=== PATIENT | female | born 1990 | race Caucasian/White ===

== ENCOUNTER 2017-01-21 21:32 | Emergency (ER) | payer BC ==
[~2017-01-21] VITALS: Ht 162.6 cm; Wt 73.6 kg
[~2017-01-21 21:32] MED LIST: ACET-62 PO; PREN1TAB73 PO
[2017-01-21 22:09] VITALS: BP 137/67; PULSE 94; RESP 16; TEMP 99.6; O2SAT 96; Ht 162.6 cm; Wt 73.6 kg
--- NOTE | 2017-01-21 22:38 | NUR ---
[facility] PT REPORTS THAT SHE WOULD LIKE TO LEAVE AT THIS TIME TO GO AND BE SEEN AT [place]. PT LEAVES AMBULATORY.
== END 2017-01-21 22:38 | disposition left against medical advice (07) ==
LOC: ED 21:32
DX: Z53.21 Procedure and treatment not carried out due to patient leaving prior to being seen by health care provider (principal)

== ENCOUNTER 2017-07-03 19:22 | Observation (INO) ==
--- OUTSIDE RECORDS SUMMARY | 2017-07-03 19:50 | External Medical Summary | Referral Summary ---
:1990 Author Organization [facility] [place] [phone] Care Team Providers Name Role Phone Stevie Roe Primary Care Physician Encounter VC Date(s): 08/31/16 - 08/31/16 [facility] [place] [phone] [place] Discharge Diagnosis: History of migraine headaches Discharge Diagnosis: Chronic pain disorder Discharge Diagnosis: Currently Discharge Disposition: 01-Home or Self Care Attending Physician: Romelia Morgan PA-C Admitting Physician: Romelia Morgan PA-C Vital Signs Most recent to oldest [Reference Range]: 1 Peripheral Pulse Rate [60-100 bpm] 82 bpm (08/31/16 8:51 AM) Blood Pressure [90-140/60-90 mmHg] 96/46 mmHg (08/31/16 8:51 AM) SpO2 98 % (08/31/16 8:51 AM) Problem List Condition Effective Dates Status Health Status Informant Bladder problem(Confirmed) Active Chronic pain disorder(Confirmed) Resolved Dental caries(Confirmed) Active Ear cysts(Confirmed) Resolved Genital herpes(Confirmed) Active STD (sexually transmitted Active disease)(Confirmed) Tobacco user(Confirmed) Active patient Allergies, Adverse Reactions, Alerts No Known Medication Allergies Medications albuterol CFC free 90 mcg/inh inhalation aerosol 2 puffs, Inhalation, QID, as needed for wheezing, # 18 g, 0 Refill(s), Pharmacy : [facility] [id number] Start Date: 03/10/15 Status: OrderedCeleXA 20 mg oral tablet See Instructions, Take 1/2 tab PO QD x 1 week, then 1 tab PO QD, # 30 tabs, 0 Refill(s) Start Date: 08/31/16 Status: OrderedNorco 5 mg-325 mg oral tablet 1 tabs, Oral, q6hr, as needed for pain, Must last 30 days. Please make an appt for med check., # 25tabs, 0 Refill(s) Start Date: 08/07/16 Status: OrderedPhysical Therapy Physical Therapy, See Instructions, Evaluate and treat for migraine headaches ( Z86.69) and chronic pain (G89.4). Please fax notes to [phone], # 1 Each, 0 Refill(s) Start Date: 08/31/16 Status: OrderedZofran ODT 4 mg oral tablet, disintegrating 4 mg 1 tabs, Oral, TID, as needed for nausea/vomiting, 0 Refill(s) Start Date: 06/26/16 Status: Ordered Results No data available for this section Immunizations No data available for this section Procedures Procedure Date Related Diagnosis Body Site Knee surgery 2009 and 2010 2009 Rt shoulder surgery 2004 Social History Social History Type Response Smoking Status Current every day smoker; Type: Cigarettes; Tobacco use per day : 1/2 pack or more Assessment and Plan Extracted from: Title: Office Visit Note- ED f/u, Author: Romelia Morgan PA-C Date: migraines, pain Assessment/Plan Chronic pain disorder I am not comfortable giving the pt any narcotics or pain medicationwhile she is . She is not even due for her Archer, and I already told her that I would not fill it tod ay. I discussed the case with Dr. Roe. He recommended trying Celexa to see if this would help with pain and migraines. Will start on 10mg daily for a week, then increase to 20mg. Also recommended d oing physical therapy. She states that she wouldn't have a way to get there as she does not have a [place] driver's license and relies on others for ride. She was handed a script for PT today, and may start thi s if she can. Also recommended seeing pain management, and she is agreeable to trying this. Will set her up with Dr. Watkins to see if there is anything he can do to help her with her pain while she is . Ordered: Office Visit Level 4 Est 02773 Currently Will be seeing her OB doctor on Sunday (09/04). I d/w pt that she should NOT take NSAIDs while . Needs to stop taking Ibuprofen at home. May take Tylenol. May take Zofran fo r her nausea. I d/w pt the dangers to herself and to the baby when taking alf narcotics and pain medication while . She states that she had taken Archer throughout her with her jarret hardin child, and did fine. Again, I am NOT comfortable giving her narcotics while , and will have to get these through Dr. Roe if he is willing. CanNOT have Archer until due(not until 09/07), if it is approved. Ordered: Office Visit Level 4 Est 14522 History of migraine headaches As above. D/w her to only take Tylenol for pain. Can also try Benadryl to see if this helps. Zofran for N/V. Ordered: Office Visit Level 4 Est 49560
--- OUTSIDE RECORDS SUMMARY | 2017-07-03 19:50 | External Medical Summary | Continuity of Care Document ---
:1990 Author Organization [facility] Address [address] [place], [place] [id number] Phone Care Team Providers Name Role Phone Stevie Roe MD, FAAFP Unavailable Unavailable Allergies, Adverse Reactions, Alerts Substance Reaction Severity Status No Known Drug Allergies Unknown Active Medications Medication Instructions Dosage Effective Dates Status Comments (start - stop) Spur 5 mg-325 mg take 1 tablet by Not Available - Active tablet oral route every 6 hours as needed for pain Mirena 20 mcg/24 hr - - Active (5 years) intrauterine device Problems Condition Effective Dates (start - stop) Clinical Status Acute upper respiratory infection, unspecified Dysuria - Active Pelvic Pain - Active IUD, Surveillance - Active Procedures Procedure Date Unknown Results Test Name Date and Time Measure Units Reference Range Abnormal Flag Comments Unknown Advance Directives Directive Yes / No Effective Date File Name Unknown Encounters Encounter Practice Location Reason(s) Diagnoses Date Provider Care Team Description For Visit Members [facility] C[facility] In -2016 [facility] Medical [address], [place], [address], [id number], [place] [facility], tel:[phone], [address] [place]. tel:[phone] Luiza Cee Acute upper Shabbir Referring In [facility] -2016 [facility] Provider: Laurent YANES, infection, Medical [facility] [address], unspecified [place], [place], [address], [address] , [place] [address] [place], [address], tel:[phone], [place], [address] [place]. [id number]. tel: tel:[phone] [facility] [place] [facility] [place]. [facility], Medical [address], [place], [address], [id number], [facility] [place], tel:[phone], [address] [place]. tel:[phone] Luiza Cee Shabbir In [place]. [facility], Medical [address], [place], [address], [id number], [facility], tel:[phone], [address] [place]. tel:[phone] Luiza Cee Shabbir In [place]. [facility] [place], Medical [address], [place], [address], [id number], [facility], tel:[phone], [address] [place]. tel:[phone] Family History Family Member Diagnosis Age At Onset Paternal Grandmother Cardiovascular Disease Father Hypertension Father Diabetes mellitus Mother Diabetes mellitus Father Hypercholesterolemia Immunizations Vaccine Date Status Comments Unknown Payers Payer name Insurance type Covered green party ID Authorization(s) [place] [id number] Social History Type Description Quantity Date Captured Alcohol Use Details Unknown Caffeine Use Details Unknown Tobacco Use Status Unknown Smoking Status Unknown Vital Signs Date / Height Weight BMI Pulse Blood Temperature Respiratory Body Head BMI Time: Rate Pressure Rate Surface Circumference percentile Area Unknown Chief Complaint And Reason For Visit Unknown Chief Complaint And Reason For Visit Reason For Referral Reason For Referral Unknown Plan Of Care Date Type Action Status Unknown. Date Type Problem Goal Intervention Status Start Date Unknown. History Of Present Illness Encounter Date Complaint History Of Present Illness This patient has no known history of present illness Functional Status Encounter Date Functional Assessment Cognitive Assessment Unknown Medications Administered Medication Instructions Dosage Effective Dates (start - stop) Status Comments Drug Treatment Unknown Instructions Date Instruction Additional Information Unknown
--- OUTSIDE RECORDS SUMMARY | 2017-07-03 19:50 | External Medical Summary | Referral Summary ---
:1990 Author [facility] Address [address] [place] [address] [place] [address] Care Team Providers Name Role Phone Stevie Reo Primary Care Physician Encounter VC Date(s): 03/10/15 - 03/10/15 [facility] [place] [phone] [place] Discharge Disposition: 01-Home or Self Care Attending Physician: Stevie Roe MD Admitting Physician: Stevie Roe MD Vital Signs Most recent to oldest [Reference Range]: 1 Blood Pressure [90-140/60-90 mmHg] 100/60 mmHg (03/10/15 9:20 AM) Problem List Condition Effective Dates Status [...] # 18 g, 0 Refill(s), Pharmacy : [facility] [id number] Start Date: 03/10/15 Status: Orderedamitriptyline 25 mg oral tablet 1-2 tabs, Oral, Bedtime (once a day), # 30 Each, 0 Refill(s), Pharmacy: [facility] [id number], 1-2 tabs Oral Bedtime (once a day) Start Date: 07/28/15 Status: Orderedibuprofen 800 mg oral tablet 1 tabs, Oral, q8hr, # 30 tabs, 0 Refill(s), Pharmacy: [facility] [id number] , 1 tabs Oral q8hr Start Date: 10/14/14 Status: OrderedKeflex 500 mg oral capsule 500 mg 1 caps, Oral, q6hr, # 40 caps, 0 Refill(s), Pharmacy: [facility] [id number], 1 caps Nrazq3pm Start Date: 07/08/15 Status: OrderedMobic 7.5 mg oral tablet 1 tabs, Oral, q12hr, # 60 tabs, 0 Refill(s), Pharmacy: [facility] [id number], 1 tabs Oral q12hr Start Date: 11/24/14 Status: OrderedNorco 5 mg-325 mg oral tablet 1 tabs, Oral, q6hr, as needed for pain, Must last 30 days., # 20 tabs, 0 Refill( s) Start Date: 08/30/15 Status: OrderedtraMADol 50 mg oral tablet 50 mg 1 tabs, Oral, q12hr, as needed for pain, [facility], # 60 tabs, 0 Refill(s) Start Date: 07/28/15 Status: Ordered Results No data available for this section Immunizations No data available for this section Procedures Procedure Date Related Diagnosis Body Site Knee surgery 2009 and 2010 2009 Rt shoulder surgery 2004 Social History Social History Type Response Smoking Status Current every day smoker; Type: Cigarettes Assessment and Plan Extracted from: Title: Ambulatory Patient Education Author: Stevie Roe MD Date: Family Medicine Chronic Obstructive Pulmonary Disease Chronic obstructive pulmonary disease (COPD) is a common lung condition in which airflow from the lungs is limited. COPD is a general term that can be used to describe many different lung problems that limit airflow, including both chronic bronchitis and emphysema. If you have COPD, your lung function will probably never return to normal, but there are measures you can take to improve lung function and make yourself feel better. CAUSES Smoking (common). Exposure to secondhand smoke. Genetic problems. Chronic inflammatory lung diseases or recurrent infections. SYMPTOMS Shortness of breath, especially with physical activity. Deep, persistent (chronic ) cough with a large amount of thick mucus. Wheezing. Rapid breaths (tachypnea ). Malone or bluish discoloration (cyanosis ) of the skin, especially in fingers, toes, or lips. Fatigue. Weight loss. Frequent infections or episodes when breathing symptoms become much worse (exacerbations ). Chest tightness. DIAGNOSIS Your healthcare provider will take a medical history and perform a physical examination to make the initial diagnosis. Additional tests for COPD may include: Lung (pulmonary ) function tests. Chest X-ray. CT scan. Blood tests. TREATMENT Treatment available to help you feel better when you have COPD include: Inhaler and nebulizer medicines. These help manage the symptoms of COPD and make your breathing more comfortable Supplemental oxygen. Supplemental oxygen is only helpful if you have a low oxygen level in your blood. Exercise and physical activity. These are beneficial for nearly all people with COPD. Some people may also benefit from a pulmonary rehabilitation program. HOME CARE INSTRUCTIONS Take all medicines (inhaled or pills) as directed by your health care provider. Only take dwnz-epx-ayjavfi or prescription medicines for pain, fever, or discomfort as directed by your health care provider. Avoid xoxp-owr-myfbfaz medicines or cough syrups that dry up your airway ( such as antihistamines) and slow down the elimination of secretions unless instructed otherwise by your healthcare provider. If you are a smoker, the most important thing that you can do is stop smoking. Continuing to smoke will cause further lung damage and breathing trouble. Ask your health care provider for help with quitting smoking. He or she can direct you to community resources or hospitals that provide support. Avoid exposure to irritants such as smoke, chemicals, and fumes that aggravate your breathing. Use oxygen therapy and pulmonary rehabilitation if directed by your health care provider. If you require home oxygen therapy, ask your healthcare provider whether you should purchase a pulse oximeter to measure your oxygen level at home. Avoid contact with individuals who have a contagious illness. Avoid extreme temperature and humidity changes. Eat healthy foods. Eating smaller, more frequent meals and resting before meals may help you maintain your strength. Stay active, but balance activity with periods of rest. Exercise and physical activity will help you maintain your ability to do things you want to do. Preventing infection and hospitalization is very important when you have COPD. Make sure to receive all the vaccines your health care provider recommends , especially the pneumococcal and influenza vaccines. Ask your healthcare provider whether you need a pneumonia vaccine. Learn and use relaxation techniques to manage stress. Learn and use controlled breathing techniques as directed by your health care provider. Controlled breathing techniques include: Pursed lip breathing. Start by breathing in (inhaling ) through your nose for 1 second. Then, purse your lips as if you were going to whistle and breathe out (exhale ) through the pursed lips for 2 seconds. Diaphragmatic breathing. Start by putting one hand on your abdomen just above your waist. Inhale slowly through your nose. The hand on your abdomen should move out. Then purse your lips and exhale slowly. You should be able to feel the hand on your abdomen moving in as you exhale. Learn and use controlled coughing to clear mucus from your lungs. Controlled coughing is a series of short, progressive coughs. The steps of controlled coughing are: 1. Lean your head slightly forward. 2. Breathe in deeply using diaphragmatic breathing. 3. Try to hold your breath for 3 seconds. 4. Keep your mouth slightly open while coughing twice. 5. Spit any mucus out into a tissue. 6. Rest and repeat the steps once or twice as needed. SEEK MEDICAL CARE IF: You are coughing up more mucus than usual. There is a change in the color or thickness of your mucus. Your breathing is more labored than usual. Your breathing is faster than usual. SEEK IMMEDIATE MEDICAL CARE IF: You have shortness of breath while you are resting. You have shortness of breath that prevents you from: Being able to talk. Performing your usual physical activities. You have chest pain lasting longer than 5 minutes. Your skin color is more cyanotic than usual. You measure low oxygen saturations for longer than 5 minutes with a pulse oximeter. MAKE SURE YOU: Understand these instructions. Will watch your condition. Will get help right away if you are not doing well or get worse. Document Released: 07/11/2006 Document Revised: 07/22/2014 Document Reviewed: 05/28/2014 [facility] Patient Information 2014 [facility]. No follow up information was provided. Extracted from: Title: Office Visit Note Author: Stevie Roe MD Date: 03/10/15 Assessment/Plan Acute URI Zpack and prednisone 20mg po daily for five days was given. A work /school note was offered and deferred by the patient. Tobacco user Smoking Cessatin was discussed. The patient is welcome to f/u for therapy or medication for smoking cessation at any time that they are willing to quit. Wheezing Solumedrol 80mg IM and albuterol mdi twopuffs q6 prn. Consider cxr if not improving.
--- OUTSIDE RECORDS SUMMARY | 2017-07-03 19:50 | External Medical Summary | Referral Summary ---
:1990 Author Organization [facility] [place] [address] Care Team Providers Name Role Phone Stevie Roe Primary Care Physician Encounter Date(s): 02/04/16 - 02/04/16 [facility] [place] [phone]- Discharge Diagnosis: Well woman exam with routine gynecological exam Discharge Diagnosis: Encounter for removal of intrauterine contraceptive device Discharge Disposition: 01-Home or Self Care Attending Physician: Kym Norris APRN Admitting Physician: Kym Norris APRN Vital Signs Most recent to oldest [Reference Range]: 1 Peripheral Pulse Rate [60-100 bpm] 66 bpm (02/04/16 9:50 AM) Blood Pressure [90-140/60-90 mmHg] 106/60 mmHg (02/04/16 9:50 AM) Problem List Condition Effective Dates Status [...] # 18 g, 0 Refill(s), Pharmacy : [facility] [id number] Start Date: 03/10/15 Status: OrderedCompazine 10 mg, Oral, QID, as needed for nausea/vomiting, # 30 tabs, 0 Refill(s) Start Date: 01/27/16 Status: Orderedibuprofen 800 mg oral tablet 1 tabs, Oral, q8hr, # 30 tabs, 0 Refill(s), Pharmacy: [facility] [id number] , 1 tabs Oral q8hr Start Date: 10/14/14 Status: OrderedKeflex 500 mg oral capsule 500 mg 1 caps, Oral, QID, X 10 days, # 40 caps, 0 Refill(s), Pharmacy: [facility] [id number], 1caps Oral QID,x10 days Start Date: 02/02/16 Stop Date: 02/12/16 Status: OrderedNorco 5 mg-325 mg oral tablet 1 tabs, Oral, q6hr, as needed for pain, Must last 30 days. Note number dispensed increased to 25 tabs by pcp., # 25 tabs, 0 Refill(s) Start Date: 02/02/16 Status: OrderedtraMADol 50 mg oral tablet 50 mg 1 tabs, Oral, BID, as needed for pain, Must last 30 days., # 60 tabs, 0 Refill(s) Start Date: 12/06/15 Status: Ordered Results No data available for this section Immunizations No data available for this section Procedures Procedure Date Related Diagnosis Body Site Knee surgery 2009 and 2010 2009 Rt shoulder surgery 2004 Social History Social History Type Response Smoking Status Current every day smoker; Type: Cigarettes Assessment and Plan No data available for this section
--- OUTSIDE RECORDS SUMMARY | 2017-07-03 19:51 | External Medical Summary | Referral Summary ---
:1990 Author Organization [facility] [place] [address] Care Team Providers Name Role Phone Stevie Roe Primary Care Physician Encounter VC Date(s): 02/02/16 - 02/02/16 [facility] [place] [phone] [place] Discharge Disposition: 01-Home or Self Care Attending Physician: Stevie Roe MD Admitting Physician: Stevie Roe MD Vital Signs Most recent to oldest [Reference Range]: 1 Blood Pressure [90-140/60-90 mmHg] 100/60 mmHg (02/02/16 11:02 AM) Problem List Condition Effective Dates Status [...] # 18 g, 0 Refill(s), Pharmacy : [facility] [address] Start Date: 03/10/15 Status: OrderedCompazine 10 mg, Oral, QID, as needed for nausea/vomiting, # 30 tabs, 0 Refill(s) Start Date: 01/27/16 Status: Orderedibuprofen 800 mg oral tablet 1 tabs, Oral, q8hr, # 30 tabs, 0 Refill(s), Pharmacy: [facility] [id number] , 1 tabs Oral q8hr Start Date: 10/14/14 Status: OrderedKeflex 500 mg oral capsule 500 mg 1 caps, Oral, QID, X 10 days, # 40 caps, 0 Refill(s), Pharmacy: [facility] [address], 1caps Oral QID,x10 days Start Date: 02/02/16 [...] Cigarettes Assessment and Plan Extracted from: Title: Office Visit Note Author: Stevie Roe MD Date: 02/02/16 Assessment/Plan Chronic pain disorder This issue was reviewed, appears stable, and current therapy continued except as mentioned. Appropriate lab was reviewed from the most recent appropriate entry and lab was orde red if needed in the cpoe/nursing orders, and follow up recommended generally in 90 days and no later then six months. Bradley to norco 5 number 25 every 30 days. A work/school note was offered and deferred by the patient. Infection associated with intrauterine contraceptive device (IUD). Keflex 500mg po qid for ten days and has some on hand already and wants to use that due to no insurance. To Dr. Beatriz Norris for consideration of IUD removal at patient request. Pelvic sono discussed and declined by her due to expense. Offered [facility] care and declined for now. To [facility] if worse in any way. Sent: 01/27/2016 10:34:13 CDT Subject: [facility] visit 01.26.2016 Per [facility] record: One day hx of LLQ pain, sharp and stabbing like her pain from prior ovarian cysts. Also seems to have a lot of pain from her IUD, and like her IUD taken out tonight if possible. Patient does have mult iple chronic pain syndromes, takes Bradley routinely, but gets prescriptions from her very care physician 20 tablets every 30 days on a strict contract. Patient is currently out, and awaiting appointment to see her primary physician for refill. LLQ pain See above. Tobacco user Smoking Cessation was discussed. The patient is welcome to f/u for therapy or medication for smoking cessation at any time that they are willing to quit. Orders: cephalexin, 500 mg 1 caps, Oral, QID, X 10 days, # 40 caps, 0 Refill( s), Pharmacy: [facility] [id number], 1 caps Oral QID,x10 days HYDROcodone-acetaminophen, 1 tabs, Oral, q6hr, as needed for pain, Must last 30 days. Note number dispensed increased to 25 tabs by pcp., # 25 tabs, 0 Refill (s)
--- OUTSIDE RECORDS SUMMARY | 2017-07-03 19:51 | External Medical Summary | Referral Summary ---
:1990 Author Organization [facility] [place] [place] [phone] Care Team Providers Name Role Phone Stevie Roe Primary Care Physician Encounter VC Date(s): 10/26/15 - 10/26/15 [facility] [place] [place] [phone] [place] Discharge Diagnosis: Bilateral low back pain Discharge Disposition: 01-Home or Self Care Attending Physician: Eri Montana DO Admitting Physician: Eri Montana DO Vital Signs Most recent to oldest [Reference Range]: 1 Peripheral Pulse Rate [60-100 bpm] 66 bpm (10/26/15 3:05 PM) Respiratory Rate [14-20 br/min] 18 br/min (10/26/15 3:05 PM) Blood Pressure [90-140/60-90 mmHg] 110/62 mmHg (10/26/15 3:05 PM) SpO2 99 % (10/26/15 3:05 PM) Problem List Condition Effective Dates Status Health [...] # 18 g, 0 Refill(s), Pharmacy : [facility] [id number] Start Date: 03/10/15 Status: Orderedamitriptyline 25 mg oral tablet 1-2 tabs, Oral, Bedtime (once a day), # 30 Each, 0 Refill(s), Pharmacy: [id number], 1-2 tabs Oral Bedtime (once a day) Start Date: 07/28/15 Status: Orderedibuprofen 800 mg oral tablet 1 tabs, Oral, q8hr, # 30 tabs, 0 Refill(s), Pharmacy: [facility] [id number] , 1 tabs Oral q8hr Start Date: 10/14/14 Status: OrderedKeflex 500 mg oral capsule 500 mg 1 caps, Oral, q6hr, # 40 caps, 0 Refill(s), Pharmacy: [facility] [id number], 1 caps [id number] Start Date: 07/08/15 Status: OrderedNorco 5 mg-325 mg oral tablet 1 tabs, Oral, q6hr, as needed for pain, Must last 30 days., # 20 tabs, 0 Refill( s) Start Date: 09/29/15 Status: Ordered Results No data available for this section Immunizations No data available for this section Procedures Procedure Date Related Diagnosis Body Site Knee surgery 2009 and 2010 2009 Rt shoulder surgery 2004 Social History Social History Type Response Smoking Status Current every day smoker; Type: Cigarettes Assessment and Plan Extracted from: Title: DOC back pain Author: Eri Montana DO Date: 10/26/15 Assessment/Plan Bilateral low back pain Patient was offered muscle relaxants but declined. Steroid shot was provided todayIM. Patient was offered statlumbar x-ray butcould not stay for the results. We will call her with results of the x-ray. I advised patient that I would not provide herany narcotic pain medication above what she is a 28 getting from her primary provider. She believes that she needs this increased she must discuss this with her PCP. Follow-up with PCP if not improving. 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
--- OUTSIDE RECORDS SUMMARY | 2017-07-03 19:51 | External Medical Summary | Referral Summary ---
:1990 Author Organization [facility] [place] [place] [phone] Care Team Providers Name Role Phone Stevie Roe Primary Care Physician Encounter VC Date(s): 07/28/15 - 07/28/15 [facility] [place] [place] [phone]- Discharge Diagnosis: Chronic pain disorder Discharge Diagnosis: Chronic left ear pain Discharge Disposition: 01-Home or Self Care Attending Physician: Romelia Morgan PA-C Admitting Physician: Romelia Morgan PA-C Vital Signs Most recent to oldest [Reference Range]: 1 Temperature Tympanic [36.6-38.1 degC] 37.2 degC (07/28/15 1:49 PM) Peripheral Pulse Rate [60-100 bpm] 84 bpm (07/28/15 1:49 PM) Respiratory Rate [14-20 br/min] 16 br/min (07/28/15 1:49 PM) Blood Pressure [90-140/60-90 mmHg] 106/62 mmHg (07/28/15 1:49 PM) Problem List Condition Effective Dates Status [...] # 18 g, 0 Refill(s), Pharmacy : [facility] [id number] Start Date: 03/10/15 Status: OrderedCompazine 10 mg, Oral, QID, as needed for nausea/vomiting, # 30 tabs, 0 Refill(s) Start Date: 01/27/16 Status: Orderedibuprofen 800 mg oral tablet 1 tabs, Oral, q8hr, # 30 tabs, 0 Refill(s), Pharmacy: [facility] [id number] , 1 tabs Oral q8hr Start Date: 10/14/14 Status: OrderedKeflex 500 mg oral capsule 500 mg 1 caps, Oral, QID, X 10 days, # 40 caps, 0 Refill(s), Pharmacy: [facility] [id number], 1caps Oral QID,x10 days Start Date: 02/02/16 [...] Extracted from: Title: Ambulatory Patient Education Author: Romelia Morgan PA-C Date: 07/28/15 Family Medicine Chronic Pain Chronic pain can be defined as pain that is off and on and lasts for 36 months or longer. Many things cause chronic pain, which can make it difficult to make a diagnosis. There are many treatment opt ions available for chronic pain. However, finding a treatment that works well for you may require trying various approaches until the right one is found. Many people benefit from a combination of two or more types of treatment to control their pain. SYMPTOMS Chronic pain can occur anywhere in the body and can range from mild to very severe. Some types of chronic pain include: Headache. Low back pain. Cancer pain. Arthritis pain. Neurogenic pain. This is pain resulting from damage to nerves. People with chronic pain may also have other symptoms such as: Depression. Anger. Insomnia. Anxiety. DIAGNOSIS Your health care provider will help diagnose your condition over time. In many cases, the initial focus will be on excluding possible conditions that could be causing the pain. Depending on your symptom s, your health care provider may order tests to diagnose your condition. Some of these tests may include: Blood tests. CT scan. MRI. X-rays. Ultrasounds. Nerve conduction studies. You may need to see a specialist. TREATMENT Finding treatment that works well may take time. You may be referred to a pain specialist. He or she may prescribe medicine or therapies, such as: Mindful meditation or yoga. Shots (injections) of numbing or pain-relieving medicines into the spine or area of pain. Local electrical stimulation. Acupuncture. Massage therapy. Aroma, color, light, or sound therapy. Biofeedback. Working with a physical therapist to keep from getting stiff. Regular, gentle exercise. Cognitive or behavioral therapy. Group support. Sometimes, surgery may be recommended. HOME CARE INSTRUCTIONS Take all medicines as directed by your health care provider. Lessen stress in your life by relaxing and doing things such as listening to calming music. Exercise or be active as directed by your health care provider. Eat a healthy diet and include things such as vegetables, fruits, fish, and lean meats in your diet. Keep all follow-up appointments with your health care provider. Attend a support group with others suffering from chronic pain. SEEK MEDICAL CARE IF: Your pain gets worse. You develop a new pain that was not there before. You cannot tolerate medicines given to you by your health care provider. You have new symptoms since your last visit with your health care provider. SEEK IMMEDIATE MEDICAL CARE IF: You feel weak. You have decreased sensation or numbness. You lose control of bowel or bladder function. Your pain suddenly gets much worse. You develop shaking. You develop chills. You develop confusion. You develop chest pain. You develop shortness of breath. MAKE SURE YOU: Understand these instructions. Will watch your condition. Will get help right away if you are not doing well or get worse. Document Released: 06/23/2003 Document Revised: 06/03/2014 Document Reviewed: 03/27/2014 [facility] Patient Information 2015 [facility]. This information is not intended to replace advice given to you by your health care provider. Make sure you discuss any questions you have with your health care provider. No follow up information was provided. Extracted from: Title: Office Visit Note Author: Romelia Morgan PA-C Date: 07/28/15 Assessment/Plan Chronic left ear pain She seems to have good sx relief with the Elavil. Will refill for pt. When she does establish health insurance, may work up further with ENT or CT. Ordered: Office Visit Level 3 Est 33075 Chronic pain disorder I discussed the request of [place] dose increase by the pt. Dr. Roe was not willing to increase at this time. This was discussed with the pt. Script was printed and handed to the pt for [place] 5/325 to take Q 6 H prn pain #20. She is only able to receive refills Q 30 days as appropriate. Pt voiced understanding. Her Tramadol was also refilled today. Ordered: Office Visit Level 3 Est 77922 Orders: amitriptyline, 1-2 tabs, Oral, Bedtime (once a day), # 30 Each, 0 Refill(s), Pharmacy: [facility] [id number], 1-2 tabs Oral Bedtime (once a day) HYDROcodone-acetaminophen, 1 tabs, Oral, q6hr, as needed for pain, Must last 30 days., # 20 tabs, 0 Refill(s)
[2017-07-03] MEDS ORDERED: SALINE FLUSH 10ml SYRINGE IVF PRN (20:24)
[2017-07-03] MEDS ORDERED: KETOROLAC 30 MG/ML INJECTION IVP ONE (20:24)
[2017-07-03] MEDS ORDERED: NS 1,000 ML IV ONE (20:24)
[2017-07-03] MEDS ORDERED: ONDANSETRON 4 MG/2 ML INJECTION IVP ONE (20:24)
--- NOTE | 2017-07-03 20:29 | Emergency Department Report ---
Abdominal Pain HPI - General Chief Complaint: Abdominal Pain Stated Complaint: severe abd pain lower up to rib cage Time Seen by Provider: 07/03/17 19:38 Source: patient, family Mode of arrival: ambulatory Limitations: other (Hystrionics) - History of Present Illness HPI narrative: 27yo woman presents to the ER for evaluation of weeks of abdominal pain. Pt has been seen by her PCM (Dr. Gunderson) and started on several medications, all without effect. Presents tonight, due to 'severe pain'. Pt has not taken anything for this tonight. States that the pain is severe and diffuse. Is unable to localize or characterize the pain. Friend states that pt has PCOS, does not take anything for this. States that the 'whole family' has had to have hysterectomies for 'severe PCOS'. MD complaint: abdominal pain Onset (ago): week(s) Consistency: constant Location: diffuse Severity: similar to previous episodes Severity scale (1-10): >10 Quality: sharp Radiation: none Migration to: no migration Relieving factors: nothing Exacerbating factors: eating, bowel movement, medication, movement Context: history of similar episodes Associated symptoms: nausea - Related Data Home Medications Medication Instructions Recorded Confirmed Cyclobenzaprine HCl 10 mg PO TID PRN 06/07/17 07/03/17 Lubiprostone [Amitiza] 24 mcg PO BID 07/03/17 07/03/17 Oxycodone HCl/Acetaminophen 1 tab PO Q6HPRN PRN 07/03/17 07/03/17 [Oxycodon-Acetaminophen 7.5-325] Allergies Allergy/AdvReac Type Severity Reaction Status Date / Time No Known Drug Allergies Allergy Unknown NONE Verified 07/03/17 19:59 Review of Systems All systems: reviewed and negative except as stated Gastrointestinal: Reports: as per HPI, abdominal pain PFSH Patient Stated Medical History Migraine Yes Osteoarthritis Yes: R knee Herpes Yes Depression Yes Ovarian Cysts Yes Polycystic Ovarian Syndrome Yes Post Menopausal No Now No - Social History Smoking status: Current every day smoker Physical Exam - Limitations Limitations: other (Hystrionics) - General General appearance: alert, in distress - Normal Exams: Head:: Normocephalic without trauma Eyes:: Pupils are PERRLA w/ EOMI, No scleral icterus, irritation, or foreign bodies noted ENMT:: No facial trauma, nasal exudates, pharyngeal erythema, or exudates are noted Neck:: Full range of motion, without adenopathy Chest/Respirations:: Clear all hill, with good airflow, and symmetry bilaterally Cardiovascular:: Regular rate and rhythm, without murmur or gallop, Pulses 2+ all extremities, capillary refill, <2 seconds all extremities Lymphatic:: No lymphadenopathy Musculoskeletal:: No tenderness, or deformity noted Integumentary:: No rashes, hives, or bruising noted Neurological:: Patient is alert - Abdominal Exam Abdominal exam: Present: soft, guarding, normal bowel sounds, other (Pt guards during exam. After initial auscultation, pt would not even allow stethoscope to be placed on abdomen, anywhere.). Absent: distention - Psychiatric Psychiatric exam: Present: agitated, other (Wailing and crying. Refuses to answer most questions - looks to friend in ER during entirety of exam.) Course Course Narrative: Pt markedly improved following ativan and toradol. Pt sitting up in bed and laughing/joking with NRS and friend. - Consultations Consultation #1: Dr. Shea: Presented to the ER at 2230 for evaluation of pt. Will admit pt to [facility] for overnight observation, IV ATBX, and re-evaluation in the AM. Time: 22:08 Vital Signs Temperature 98.4 F 07/03/17 19:39 Pulse Rate 92 07/03/17 19:39 Respiratory Rate 24 07/03/17 19:39 Blood Pressure 111/67 07/03/17 19:39 Pulse Oximetry 100 07/03/17 19:39 Temperature 98.4 F 07/03/17 19:39 Pulse Rate 92 07/03/17 19:39 Respiratory Rate 24 07/03/17 19:39 Blood Pressure 111/67 07/03/17 19:39 Pulse Oximetry 100 07/03/17 19:39 Abdominal Pain - MDM Narrative Medical decision making narrative: Pt with elevated WBCs on labs and increased free fluid on abd CT. Ddx includes peritonitis. Radiologist commented that amount of fluid is greater than expected with a ruptured cyst. After consultation with adult education professional, pt to be admitted to the hospital for pain control and continued observation. - Differential Diagnosis Differential diagnosis: Likely: abdominal pain, calculus of kidney, constipation , diverticulitis, endometriosis, gastroenteritis, pancreatitis, small bowel obstruction - Medical Records Attestation: I reviewed the patient's medical records. - Lab Data Attestation: I reviewed the patient's lab results. Result diagrams: 07/03/17 20:33 07/03/17 20:33 - Radiology Data Attestation: I reviewed the patient's radiology results. CT Abd/Pelv: IMPRESSION: Fluid/ascites throughout the abdomen more than normally expected following ovulation or cyst rupture and new since the last exam. Disposition Clinical Impression: Ascites Qualifiers: Ascites type: other type Qualified Code(s): R18.8 - Other ascites Leukocytosis Qualifiers: Leukocytosis type: unspecified Qualified Code(s): D72.829 - Elevated white blood cell count, unspecified Disposition: 02 To [facility] Condition: Stable Time of Disposition: 23:00 - Seen By: physician
[2017-07-03] MEDS ORDERED: IOHEXOL 300mg/ml 100ml INJECTION ONE (21:28)
[2017-07-03] MEDS ORDERED: SALINE FLUSH 10ml SYRINGE ONE (21:28)
[2017-07-03] MEDS ORDERED: NS 100 ML ONE (21:28)
[2017-07-03] MEDS ORDERED: DOCUSATE CALCIUM 240 MG CAPSULE PO PRN (23:53)
[2017-07-03] MEDS ORDERED: AMPICILLIN 2,000 MG in NS 100 ML IV SCH (23:53)
[2017-07-03] MEDS ORDERED: MORPHINE PCA 30 MG/30 ML SYRINGE IV PRN (23:53)
[2017-07-03] MEDS ORDERED: CLINDAMYCIN PB 900 MG/50 ML BAG IV SCH (23:53)
[2017-07-04] MEDS ORDERED: NS 1,000 ML IV SCH (01:00)
[2017-07-04] MEDS ORDERED: GENTAMICIN 120 MG in NS 100 ML IV SCH (01:30)
[2017-07-04] MEDS ORDERED: NS FLUSH BAG 500ml IV PRN (02:24)
[2017-07-04 03:43] VITALS: RESP 16
[2017-07-04 08:08] VITALS: BMI 27.1
--- NOTE | 2017-07-04 08:20 | CT Scan Report ---
Indication: abd pain PROCEDURE: CT abdomen pelvis w con: Encounter: Initial Comparison: June 05, 2017 Technique: Axial CT images were performed through the abdomen and pelvis after the administration of intravenous contrast. Coronal and sagittal two-dimensional reformats. Automated Exposure Control and Iterative Reconstruction dose reducing techniques were utilized. Contrast: Omnipaque 300 89 mL Findings: The lung bases are clear. The liver shows no focal lesion or bile duct dilatation. The gallbladder is unremarkable with pericholecystic free fluid present. Small amount of perisplenic ascites as well. The pancreas and adrenal glands are normal. Kidneys are normal. No abdominal or pelvic lymphadenopathy. Free fluid in the pelvis with mildly heterogeneous uterus. Ring enhancing right adnexal lesion present measuring 3.3 cm in diameter. Slightly high attenuation free fluid in the pelvis. No evidence of a bowel obstruction. Fluid tracking along the right paracolic gutter. The appendix is not enlarged. Bone windows are stable. Impression: New free abdominal and pelvic fluid with a ring-enhancing right adnexal lesion suspicious for a ruptured hemorrhagic cyst with some intraperitoneal blood products. Tubo-ovarian abscess is within the differential. Recommend clinical and laboratory correlation. Gynecologic consultation may be helpful. Ruptured ectopic is very unlikely given the negative test. There is a preliminary report by [employer]. .
[2017-07-04] MEDS: CLINDAMYCIN PB 900 MG/50 ML BAG IV SCH ×2 (09:22→15:52)
[2017-07-04] MEDS: AMPICILLIN 2,000 MG in NS 100 ML IV SCH ×2 (09:30→14:54)
--- NOTE | 2017-07-04 10:30 | Pharmacy Consult-Antibiotics ---
Pharmacy Consult-Gentamicin - Laboratory Information Gentamicin WBC 7.6 T/MM3 (4.5-11.0) D 07/04/17 07:22 BUN 12.0 MG/DL (7-17) 07/04/17 07:22 Creatinine 0.7 MG/DL (0.7-1.2) 07/04/17 07:22 - Consult Information GENTAMICIN CONSULT: Dx: Abdominal infection Current Renal Fx: SCr = 0.7mg/dl. Will give Gentamicin dose of 120mg ivpb q8h. Will continue to monitor and make adjustments accordingly. Thank you.
[2017-07-04] MEDS: GENTAMICIN 120 MG in NS 100 ML IV SCH ×2 (10:42→17:03)
[2017-07-04 11:47] VITALS: TEMP 98; O2SAT 100
--- NOTE | 2017-07-04 12:03 | Emergency Room Note ---
DATE OF ER CONSULT/ADMISSION 07/03/2017 HPI This a 27-year-old white female, , who presented to the ER this evening. Dr. Gotti called and asked me to see the patient. She is a former patient of mine. Her chief complaint is pelvic pain. She has had abdominal and pelvic pain for 3-4 weeks. She originally saw Dr. Gunderson. 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 Mullen's nurse practitioner. The pain began as a "ruptured cyst." It was sudden in onset. Dr. Gunderson got a CT originally that was consistent with a ruptured cyst. She has been seeing Dr. Gunderson and he now thinks it may be colon problems. He started her on Linzess for IBS and Amitiza. The pain has always been in the low pelvis center and to the right side. The pain has not completely gone away in the last 3-[address] Mullen's office did a sonogram which showed some small cysts. They gave her vaginal inserts to help correct her pH because of a vaginal discharge, but they didn't culture the discharge. Sometimes it is clear and odorous and sometimes it is white without odor. Her LMP was 06/10/2017. She has regular periods. She is not on any control, but her test was negative. She denies any fevers. She saw Dr. Gunderson today and he put her on Percocet 7.5 which didn't help the pain and the pain has slowly gotten worse today. She had intercourse at 2:00 p.m. this afternoon and had a sudden onset of pain again and the pain moved up in her abdomen and got worse. She has regular bowel movements by her report. Medications include Percocet, Flexeril, Linzess , and Amitiza. ALLERGIES No known drug allergies. PAST SURGICAL HISTORY Right shoulder in 2004. Right knee in 2009 and again in 2010. Colposcopy in 2012. Mirena IUD inserted and removed in . PAST MEDICAL HISTORY Herpes simplex virus, polycystic ovarian syndrome, abnormal Pap - LGSIL. SOCIAL HISTORY She is a current every day smoker. 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 FAMILY HISTORY Mother - diabetes. Father - high cholesterol and hypertension and diabetes. Paternal grandmother - cardiovascular disease. PHYSICAL EXAMINATION Most of the exam was done by Dr. Gotti in the ER. I did an abdominal exam and there was no rebound tenderness. She points to the pain in the mid-lower pelvic region and the right side. This afternoon it went further up on the right side. A CT from the ER showed ascites throughout the abdomen more than normally would be expected with ovulation and cyst rupture and more than the last exam. Laboratory is reviewed and white count is elevated. Hemoglobin is stable. ASSESSMENT Pelvic and right lower quadrant pain with acute onset of worsening today. Does not appear to be appendix as she has not had a fever and has not had any nausea or vomiting. She is known to have ovarian cyst ruptures in the past and it could be an ovarian cyst rupture, but nobody has treated for possible infection and her white count is 17K+ today, so I have to take an infection as a possibility. CT also reads that as a possibility. I don't believe it is an acute abdomen that needs surgical care at this point in time although that is not completely ruled out. There is fluid in the abdomen that is new onset, so there is either internal bleeder or internal rupture, but patient is able to get up and out of bed and walk around so I think she is stable and does not need to go to the OR at this point in time. PLAN I am going to admit her and give her IV triple antibiotics of ampicillin, gentamicin and clindamycin. I am going to do gonorrhea and Chlamydia through her urine. At this point in time I didn't do a pelvic exam because of her tenderness. I am going to repeat her lab at 8 a.m. in the morning and also add HIV and hepatitis B and repeat her CBC and CMP. 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 Questions were answered to her and her mother's satisfaction. RUFINO
[2017-07-04] MEDS ORDERED: OXYCODONE/APAP 7.5 MG/325 MG TABLET PO PRN (12:14)
[2017-07-04 15:39] VITALS: BP 104/64; PULSE 61
--- NOTE | 2017-07-04 16:31 | Progress Note ---
DATE 07/04/2017 at 12:19 p.m. The patient is currently on triple antibiotic therapy and morphine TOWER CONTROL OPERATOR for pain. She was admitted from the ER late last night. Repeat hemoglobin this morning had dropped from 12.1 to 9.7. WBC had dropped from 17.9 to 7.6. She is afebrile. She reports that she is still having pain but it is much improved since during the night. Her is in the room with her and we had a long conversation regarding short-term plan and long-term plan. Short-term plan is to DC her TOWER CONTROL OPERATOR and get her to oral pain medicines. Dr. Gunderson started her on Percocet 7.5 yesterday for pain so will restart that dose but continue her on IV antibiotics at this point in time. Repeat hemoglobin at 1600 today and see if it is stable. If it is and she is feeling better, then she can go home this evening. Otherwise I'd like to keep her overnight again. I believe that she had a cyst rupture last night but probably included bleeding from the ovary. Given that her pain is improved today, then I don't think we are in an acute abdomen situation where we have to go to the OR at this point in time. This of course depends on how stable things are. intermediate accountant we talked about options. She is done with childbearing and would like her tubes tied. This however won't solve the cyst problem so I think we need to talk about control pills to do ovarian cyst suppression on a long- term basis. We can certainly tie her tubes as well. If her pelvic pain doesn' t improve with the antibiotic, there is a possibility we would need to do a hysterectomy but given that she is only 27 years old, would absolutely want to keep her ovaries even though she forms cysts. She is way too young to have her ovaries removed. We talked about Mirena IUD but at this point, both the patient and her are more interested in the control pills. They have not been on anything since their youngest was born several months ago and I think that fits with cyst forming again. Questions were answered to both of their satisfaction. [facility]
--- NOTE | 2017-07-04 18:02 | Progress Note ---
Progress Note: feeling better hgb stable will dc to home tonight. f/u next week begin OCP for cyst prevention Sunday after menses starts continue oral antibiotics-Cipro q&a-krb
--- NOTE | 2017-07-04 18:11 | Discharge Instructions ---
Discharge Plan - Med Rec/Dispo Referrals/Follow Up: Shant Shea MD [Physician] - 1 Week Prescriptions: Continue Oxycodone HCl/Acetaminophen [Oxycodon-Acetaminophen 7.5-325] 1 tab PO Q6HPRN PRN PRN Reason: Pain Lubiprostone [Amitiza] 24 mcg PO BID Cyclobenzaprine HCl 10 mg PO TID PRN PRN Reason: Muscle Spasm - Disposition 01 Discharged Home, Self-Care
== END 2017-07-04 18:44 | disposition home or self-care (01) ==
LOC: ED 19:22 → SRG 19:22
PROVIDERS: ADMIT Obstetrics & Gynecology; ATTEND Obstetrics & Gynecology